=== PATIENT | male | born 1985 | race Caucasian/White ===

== ENCOUNTER 2023-04-20 06:47 | Emergency (ER) | payer SELFPAY ==
[2023-04-20] MEDS ORDERED: Dexamethasone 4 MG TAB ONE (07:38)
== END 2023-04-20 07:42 | disposition home or self-care (01) ==
LOC: CSHERS 06:47
DX: J36 Peritonsillar abscess (principal); J02.9 Acute pharyngitis, unspecified; H60.91 Unspecified otitis externa, right ear
CPT/HCPCS: 87081; 87430; 99283; J8540